=== PATIENT | female | born 1990 | race Caucasian/White ===

== ENCOUNTER 2017-04-11 08:06 | Day surgery (SDC) | payer OTHER ==
[2017-04-10 13:32] VITALS: BMI 66.7
[2017-04-11] MEDS ORDERED: PROPOFOL 20 ML ONE ×2 (08:44)
[2017-04-11 10:20] VITALS: TEMP 97.5
[2017-04-11 11:28] VITALS: BP 136/94; PULSE 76
--- NOTE | 2017-04-12 16:57 | PATH ---
Surgical Pathology Report Patient Name: PACHECO DUNCAN [facility]. Rec. #: [id number] /Age/Gender: 1990 (Age: 26) / F Account: [id number] Location: [facility]OSCOPY Taken: 04/11/2017 Received: 04/11/2017 Reported: 04/12/2017 Physicians: Rodolfo Kenyon M.D. Specimen(s) Received A: BX DUODENUM B: BX EROSIONS BODY Clinical History Bariatric clearance Erosions body Final Diagnosis A. SMALL BOWEL, DUODENUM, BIOPSY: DUODENAL MUCOSA WITH FOCAL MILD ACUTE AND CHRONIC INFLAMMATION. B. STOMACH, BODY, EROSIONS, BIOPSY: GASTRIC BODY MUCOSA WITH MODERATE CHRONIC GASTRITIS. IMMUNOHISTOCHEMICAL STAIN FOR H. PYLORI IS NEGATIVE. Electronically Signed Joann Lee M.D. Gross Description A. Received in formalin, labeled "biopsy duodenum" is a r[place], irregular portion of soft tissue measuring 0.3 cm. in greatest dimension. The specimen is submitted in toto in one cassette. B. Received in formalin, labeled "biopsy erosions of body" are 4 rags[place], irregular portions of soft tissue ranging from 0.1-0.4 cm. in greatest dimension. The specimens are submitted in toto in one cassette. DL/04/11/201704/11/2017
== END 2017-04-11 11:28 | disposition home or self-care (01) ==
LOC: JASU-ENDO 08:06
PROVIDERS: ATTEND Internal Medicine Gastroenterology
PROC: 0DB68ZX Excision of Stomach, Via Natural or Artificial Opening Endoscopic, Diagnostic (ICD-10-PCS; 2017-04-11)
PROC: 0DB98ZX Excision of Duodenum, Via Natural or Artificial Opening Endoscopic, Diagnostic (ICD-10-PCS; principal; 2017-04-11 09:00)
DX: Z01.818 Encounter for other preprocedural examination (principal); E11.9 Type 2 diabetes mellitus without complications; Z79.84 Long term (current) use of oral hypoglycemic drugs; K25.9 Gastric ulcer, unspecified as acute or chronic, without hemorrhage or perforation
CPT/HCPCS: 84703; 88305-TC; 88342-TC

== ENCOUNTER 2017-08-31 12:51 | Emergency (ER) | payer BC, OTHER ==
[2017-08-31 13:14] VITALS: BP 159/64; PULSE 108; TEMP 98; BMI 69.9
--- NOTE | 2017-08-31 15:30 | PDOC ---
History of Present Illness - General Chief Complaint: Cold Symptoms Stated Complaint: FLU LIKE SYMPTOMS Time Seen by Provider: 08/31/17 13:30 History Source: Patient Exam Limitations: No Limitations - History of Present Illness Initial Comments: 08/31/17 15:26 27-year-old female presents the ED with complaints of nasal congestion, nasal clear drainage along with forehead throbbing pressure for the past 3-4 days. Patient also states dry hacking cough along with sore throat without fever, chills difficulty breathing. Patient denies recent travel, recent illness, recent sick contacts. Patient states takes Topamax for migraines and Glucophage for prediabetes. Timing/Duration: reports: other (4 days) Severity: reports: mild Possible Cause: Yes: no prior episodes Associated Symptoms: reports: cough, headache, nasal congestion, nasal drainage , sore throat Past History - Travel Traveled outside of the country in the last 30 days: No - Past Medical History Allergies/Adverse Reactions: Allergies Allergy/AdvReac Type Severity Reaction Status Date / Time cefaclor [From Ceclor] Allergy Intermediate Verified 08/31/17 13:11 clarithromycin [From Biaxin] Allergy Verified 08/31/17 13:11 Home Medications: Ambulatory Orders Topiramate [Topiramate ER] 100 mg PO DAILY 04/10/17 metFORMIN HCL [Glucophage -] 500 mg PO DAILY 04/10/17 Fluticasone Prop 0.05% Nasal [Flonase -] 1 - 2 spray NS BID #1 spray.pump Loratadine [Claritin] 10 mg PO DAILY #14 tablet 08/31/17 COPD: No Diabetes: Yes (NIDDM - JUST DIAGNOSED) 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) - Immunization History Immunization Up to Date: Yes - Suicide/Smoking/Psychosocial Hx Smoking Status: No Smoking History: Former smoker Have you smoked in the past 12 months: No Number of Cigarettes Smoked Daily: 0 If you are a former smoker, when did you quit?: 2010 Information on smoking cessation initiated: No Hx Alcohol Use: No Drug/Substance Use Hx: No Substance Use Type: None Patient Lives Alone: No Lives with/in: parents Review of Systems - Review of Systems Able to Perform ROS?: Yes Constitutional: Yes: See HPI HEENTM: Yes: See HPI Respiratory: Yes: Cough Cardiac (ROS): No: Symptoms Reported ABD/GI: No: Symptoms Reported Integumentary: No: Symptoms Reported Neurological: Yes: Headache *Physical Exam - Vital Signs Last Vital Signs Temp Pulse Resp BP Pulse Ox 98 F 108 H 19 159/64 97 08/31/17 13:11 08/31/17 13:11 08/31/17 13:11 08/31/17 13:11 08/31/17 13:11 - Physical Exam General Appearance: Yes: Nourished, Appropriately Dressed. No: Apparent Distress HEENT: positive: EOMI, ASHLEY, TMs Normal, Pharynx Normal, Nasal Congestion, Sinus Tenderness. negative: Pale Conjunctivae Neck: positive: Supple. negative: Lymphadenopathy (R), Lymphadenopathy (L) Respiratory/Chest: positive: Lungs Clear, Normal Breath Sounds. negative: Respiratory Distress, Accessory Muscle Use Cardiovascular: positive: Regular Rhythm, Regular Rate (89). negative: Murmur Gastrointestinal/Abdominal: positive: Soft. negative: Tenderness Integumentary: positive: Normal Color, Warm, Moist Neurologic: positive: Motor Strength 5/5 (ambulatory) ED Treatment Course - ADDITIONAL ORDERS Additional order review: 08/31/17 14:32 Influenza Types A,B Antigen (FELA) - Final Nasopharyngeal Swab - Final Medical Decision Making - Medical Decision Making 08/31/17 15:01 Patient with URI symptoms likely related to sinus congestion. Patient on exam had no signs of tonsillitis/strep. Patient ordered for influenza swab 08/31/17 15:31 Influenza swab negative. Patient will be discharged home with Flonase and Claritin. *DC/Admit/Observation/Transfer Diagnosis at time of Disposition: Nasal sinus congestion - Discharge Dispostion Disposition: HOME Condition at time of disposition: Good - Prescriptions Prescriptions: Fluticasone Prop 0.05% Nasal [Flonase -] 1 - 2 spray NS BID #1 spray.pump Loratadine [Claritin] 10 mg PO DAILY #14 tablet - Referrals Referrals: Ellen Keen MD [Primary Care Provider] - - Patient Instructions Printed Discharge Instructions: DI for Sinusitis Additional Instructions: Please take Claritin and Flonase as prescribed. Please use Benadryl 25 mg every 8 hours as needed for nasal congestion. Keep nasal passages clear if symptoms do not improve over the next few weeks please return to the ED. - Post Discharge Activity
== END 2017-08-31 15:40 | disposition home or self-care (01) ==
LOC: JERFT 12:51
DX: J34.89 Other specified disorders of nose and nasal sinuses (principal)
CPT/HCPCS: 87804; 99281-25

== ENCOUNTER 2018-01-19 23:42 | Emergency (ER) | payer BC, OTHER ==
--- NOTE | 2018-01-20 00:56 | PDOC ---
History of Present Illness - General Stated Complaint: EAR PAIN Time Seen by Provider: 01/20/18 00:49 History Source: Patient Exam Limitations: No Limitations - History of Present Illness Initial Comments: 01/20/18 00:50 Best Contact: PCP: Dr. Mily Lambert Pmhx: Morbidly obese 415 lb, NIDDM (dx 01/10/2018), nonalcoholic fatty liver, polycystic ovarian cysts Pshx: 2002/Tonsillectomy/ adenoidectomy Allergies: Clarithromycin and Ceclor/ hives and projectile vomit FH: Obesity Social Hx: Cigarettes/ 0 Alcohol/ 0 Drugs/0 LMP: varies due to PCOS 27 year old female presents to the ER complaining of left-sided earache 3 days without fever, chills, nausea/vomiting, facial pains, difficulty hearing, sore throat, cough, nasal congestion, neck pain/stiffness, chest pain, shortness of breath. Patient states she purchased an [id number] normal saline-like solution for a which has not helped. Pain is described as 6/10 achy nonradiating intermittent discomfort. Past History - Past Medical History Allergies/Adverse Reactions: Allergies Allergy/AdvReac Type Severity Reaction Status Date / Time cefaclor [From Ceclor] Allergy Intermediate Verified 01/12/18 09:50 clarithromycin [From Biaxin] Allergy Verified 01/12/18 09:50 Home Medications: Ambulatory Orders Topiramate [Topiramate ER] 25 mg PO DAILY 04/10/17 metFORMIN HCL [Glucophage -] 1,000 mg PO DAILY 04/10/17 Cyclobenzaprine HCl 10 mg PO Q8H PRN #14 tablet 01/12/18 Naproxen [Naprosyn -] 500 mg PO TID #30 tablet 01/12/18 Ciprofloxacin [Cipro -] 500 mg PO BID #20 tablet 01/20/18 Ofloxacin Otic [Floxin Otic -] 10 drop OT BID #100 drops 01/20/18 COPD: No DVT: No Diabetes: Yes (NIDDM) 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) - Immunization History Immunization Up to Date: Yes - Suicide/Smoking/Psychosocial Hx Smoking Status: No Smoking History: Former smoker Have you smoked in the past 12 months: No Number of Cigarettes Smoked Daily: 0 If you are a former smoker, when did you quit?: 2011 Hx Alcohol Use: No Drug/Substance Use Hx: No Substance Use Type: None Review of Systems - Review of Systems Able to Perform ROS?: Yes Comments:: 01/20/18 00:56 CONSTITUTIONAL: Absent: fever, chills, diaphoresis, generalized weakness, malaise, loss of appetite HEENT: +left earache Absent: rhinorrhea, nasal congestion, throat pain, throat swelling, difficulty swallowing, mouth swelling, eye pain, visual Changes CARDIOVASCULAR: Absent: chest pain, loss of consciousness, palpitations, irregular heart rate, peripheral edema SKIN: Absent: rash, itching, pallor Is the patient limited Albanian proficient: No *Physical Exam - Physical Exam Comments: 01/20/18 00:56 GENERAL: Well developed, well nourished. Awake and alert. No acute distress. HEENT: Left ear +pain on auricular movement +mild swelling to outer canal Left tm: non bulging/dullness Normocephalic, atraumatic. PERRLA, EOMI. No conjunctival pallor. Sclera are non- icteric. Moist mucous membranes. Oropharynx is clear. NECK: Supple. Full ROM. No JVD. Carotid pulses 2+ and symmetric, without bruits. No thyromegaly. No lymphadenopathy. SKIN: Warm and dry. Normal capillary refill. No rashes. No jaundice. *DC/Admit/Observation/Transfer Diagnosis at time of Disposition: Otitis externa Qualifiers: Otitis externa type: noninfectious Noninfectious otitis externa type: unspecified noninfectious type Chronicity: acute Laterality: left Qualified Code (s): H60.502 - Unspecified acute noninfective otitis externa, left ear - Discharge Dispostion Disposition: HOME Condition at time of disposition: Stable Decision to Admit order: No - Prescriptions Prescriptions: Ciprofloxacin [Cipro -] 500 mg PO BID #20 tablet Ofloxacin Otic [Floxin Otic -] 10 drop OT BID #100 drops - Referrals Referrals: Marilynn Sherman [Primary Care Provider] - Neil Fernandes MD [Staff Physician] - - Patient Instructions Printed Discharge Instructions: DI for Otitis Externa Additional Instructions: Patient to take the medication as prescribed, ciprofloxacin 500 mg 1 tablet twice a day for 10 days Ofloxacin as prescribed Tylenol alternating with Motrin as needed for pain every 6 hours Follow with the ENT physician/Dr. Fernandes. Return to the ER for severe/persistent/worsening symptoms - Post Discharge Activity
== END 2018-01-20 01:32 | disposition home or self-care (01) ==
LOC: JER 23:42
DX: H60.502 Unspecified acute noninfective otitis externa, left ear (principal); Z87.891 Personal history of nicotine dependence; E11.9 Type 2 diabetes mellitus without complications; K76.0 Fatty (change of) liver, not elsewhere classified
CPT/HCPCS: 99281-25